=== PATIENT | female | born 1950 | race Caucasian/White ===

== ENCOUNTER 2018-08-04 16:11 | Observation (INO) | payer MEDICARE, MEDICAID ==
[~2018-08-04] VITALS: Ht 152.4 cm; Wt 70.8 kg
[~2018-08-04 16:11] MED LIST: LORTABELXR PO
[2018-08-04 16:12] VITALS: BP 109/51
[2018-08-04] MEDS ORDERED: EXELON1 EAC1 TOP (16:32)
[2018-08-04] MEDS ORDERED: LEXAPRO20 MG PO (16:33)
[2018-08-04] MEDS ORDERED: PLAVIX 75 MG TA75 M1 PO (16:33)
[2018-08-04] MEDS ORDERED: VITAMIN D250000 UNIT PO (16:34)
[2018-08-04] MEDS ORDERED: BISAC-EVAC10 MG RECTAL (16:36)
[2018-08-04] MEDS ORDERED: APAP650 PO (16:37)
[2018-08-04] MEDS ORDERED: SENNA8.6 MG PO (16:38)
[2018-08-04] MEDS ORDERED: LASIX 20 MG TAB20 MG PO (16:39)
[2018-08-04] MEDS ORDERED: LIPITOR 20 MG T20 M1 PO (16:39)
[2018-08-04] MEDS ORDERED: KLOR-CON 10 ER10 MEQ PO (16:39)
[2018-08-04] MEDS ORDERED: DEPAKOTE SPRIN125 MG PO (16:41)
[2018-08-04] MEDS ORDERED: NAMENDA 10 MG T10 MG PO (16:41)
[2018-08-04] MEDS ORDERED: RISPERDAL0.5 MG PO (16:41)
[2018-08-04 18:00] LABS: ABSOLUTE EOSINOPHILS 0.1 thou/uL (0.0-0.7); ABSOLUTE LYMPHOCYTES 2.8 thou/uL (0.8-5.3); ABSOLUTE MONOCYTES 0.7 thou/uL (0.0-1.2); ABSOLUTE NEUTROPHILS 1.9 thou/uL (1.6-8.1); BASOPHILS 0.6 %; EOSINOPHILS 1.8 %; HEMATOCRIT 34.4 % (37.0-47.0); HEMOGLOBIN 11.8 gm/dL (12.0-15.0); LYMPHOCYTES 51.2 %; MCH 31.4 pg (26.0-34.0); MCHC 34.2 g/dL (28.0-37.0); MCV 91.9 fL (80.0-100.0); MPV 8.9 fl. (7.2-11.1); NUCLEATED RBCS 0 /100WBC; PLATELET COUNT* 99 thou/uL (150-400); POLYS 34.4 %; RBC 3.75 mil/uL (4.20-5.00); RDW-CV 13.8 % (10.5-14.5); WBC 5.4 thou/uL (4.0-11.0)
[2018-08-04 18:14] LABS: CALCIUM 8.7 mg/dL (8.5-10.1); CREATININE 1.1 mg/dL (0.6-1.3); POTASSIUM 4.3 mmol/L (3.5-5.1)
[2018-08-04 18:18] LABS: ALBUMIN 2.8 g/dL (3.4-5.0); TOTAL BILIRUBIN 0.2 mg/dL (<0.1-1.0)
[2018-08-04 20:03] VITALS: BP 120/95
[2018-08-04 20:20] VITALS: BP 132/55
[2018-08-05] MEDS ORDERED: TRAMADOL 50 MG50 MG PO (09:41)
[2018-08-05 11:55] VITALS: BP 132/55
== END 2018-08-05 12:30 ==
LOC: M.ERS 16:11 → M.TBA-ER 18:42 → M.3W 19:59
PROVIDERS: Personal Emergency Response Attendant; ADMIT Internal Medicine
DX: S00.83XA Contusion of other part of head, initial encounter (principal); S70.02XA Contusion of left hip, initial encounter; F03.90 Unspecified dementia, unspecified severity, without behavioral disturbance, psychotic disturbance, mood disturbance, and anxiety; I11.0 Hypertensive heart disease with heart failure; I50.9 Heart failure, unspecified; W07.XXXA Fall from chair, initial encounter; Y93.89 Activity, other specified; Y92.89 Other specified places as the place of occurrence of the external cause; Y99.8 Other external cause status; Z85.43 Personal history of malignant neoplasm of ovary; Z98.890 Other specified postprocedural states; Z79.899 Other long term (current) drug therapy

== ENCOUNTER 2018-08-29 14:28 | Inpatient (IN) | payer MEDICARE, MEDICAID ==
[~2018-08-29] VITALS: Ht 162.6 cm; Wt 67.1 kg
--- NOTE | ~2018-08-29 | EEG ---
[address] [address] EEG STUDY REPORT Name: MAGGIEELVIS L Room: [address] [place] .#: [id number] Admission: 08/29/18 Attend Phys: Dionne Salas MD Discharge: Date of : 52 Report #: [id number] THIS REPORT FOR: //name// CC: Joshua Salas DATE OF SERVICE: 08/30/2018 This patient is being evaluated for seizure. EEG was done by placing the electrodes by standard 10-20 system of electrode placement. Both referential and sequential montages were used for recording. Background activity is extremely disorganized and poorly formed. It appeared to be about 4-5 Hz. The patient goes to sleep that is associated with bilaterally symmetrical sleep spindle and vertex sharp waves. Photic stimulation is unremarkable. IMPRESSION: This is a severely abnormal EEG, which is disorganized and poorly formed. That is a nonspecific abnormality, which can occur with severe dementia, encephalopathy, effect of psychotropic medication, etc. Clinical correlation is recommended. By: [id number] Jaeger MD /nt
--- NOTE | ~2018-08-29 | CON ---
[address] [address] CONSULTATION Name: ELVIS SERRANO Room: [address] [place] M.R.#: [id number] Admission: 08/29/18 Attend Phys: Dionne Salas MD Discharge: Date of : 52 Report #: [id number] THIS REPORT FOR: //name// CC: Joshua Salas DATE OF SERVICE: 08/30/2018 HISTORY OF PRESENT ILLNESS: This is a 68-year-old female patient who is unable to provide any history because the patient has advanced dementia. I talked to the patient's and he indicates that this patient has advanced dementia. The dementia is so advanced that she is not able to recognize even her . She becomes agitated. They put her on Depakote for agitation. She was admitted because she was found to have a possible seizure. It was apparently a tonic-clonic seizure and she had a postictal state after that. There is nothing associated, which has been found so far. REVIEW OF SYSTEMS: A 14-point review of system was carried out. The patient has advanced dementia. She has behavioral disturbances. She is a jail at least for 3 years. She had a seizure. It does not look like there was any thing, which triggered it in particular. She is one-to-one at the moment. This was her main contributing 14-point review of system, which was carried out, the best I could. PAST MEDICAL HISTORY: Positive for advanced dementia. FAMILY HISTORY: Negative for any early age stroke. SOCIAL HISTORY: She lives in a jail. PHYSICAL EXAMINATION: NEUROLOGIC: The patient's examination is pretty limited. She is alert and wakes up. She does not follow commands all the time. The says that is her baseline and she does not follow commands most of the time. It looks like she moves all 4 extremities. There is no meningeal sign. She cannot cooperate with the fundus examination. CARDIAC: Unremarkable. RESPIRATORY: No respiratory difficulty or rhonchi was noted. GENERAL: She is a moderately built individual. HEENT: Does not have any dysmorphic features of eyes, ears and face. IMPRESSION: 1. Advanced dementia. 2. Seizure. 3. Agitation. 4. Low platelet, which may be related to the [place] [address] CONSULTATION Name: ELVIS SERRANO Room: [address]#: [id number] Admission: 08/29/18 Attend Phys: Dionne Salas MD Discharge: Date of : 52 Report #: [id number] RECOMMENDATIONS: I think it will be desirable to add some other anticonvulsant to the patient's regimen. I will add some Keppra. Her Depakote may have to be tapered off as an outpatient. All of it was discussed with the patient's family in detail and we will await rest of the workup and see what she is able to cooperate. By: [id number] Jaeger MD /denzel
[~2018-08-29 14:28] MED LIST changes: +APAP650 PO; +BISAC-EVAC10 MG RECTAL; +DEPAKOTE SPRIN125 MG PO; +EXELON1 EAC1 TOP; +KLOR-CON 10 ER10 MEQ PO; +LASIX 20 MG TAB20 MG PO; +LEXAPRO20 MG PO; +LIPITOR 20 MG T20 M1 PO; +NAMENDA 10 MG T10 MG PO; +PLAVIX 75 MG TA75 M1 PO; +RISPERDAL0.5 MG PO; +SENNA8.6 MG PO; +TRAMADOL 50 MG50 MG PO; +VITAMIN D250000 UNIT PO
[2018-08-29 14:31] VITALS: BP 137/69
[2018-08-29] MEDS ORDERED: SEROQUEL 25 MG25 M1 PO (14:38)
[2018-08-29] MEDS ORDERED: MIRALAX17 GM PO (14:38)
[2018-08-29 15:01] LABS: ABSOLUTE EOSINOPHILS 0.1 thou/uL (0.0-0.7); ABSOLUTE LYMPHOCYTES 3.2 thou/uL (0.8-5.3); ABSOLUTE MONOCYTES 0.7 thou/uL (0.0-1.2); ABSOLUTE NEUTROPHILS 2.6 thou/uL (1.6-8.1); BASOPHILS 0.5 %; EOSINOPHILS 0.9 %; HEMATOCRIT 34.7 % (37.0-47.0); LYMPHOCYTES 48.6 %; MCH 31.8 pg (26.0-34.0); MCHC 34.5 g/dL (28.0-37.0); MCV 92.3 fL (80.0-100.0); MONOCYTES 10.8 %; MPV 8.2 fl. (7.2-11.1); NUCLEATED RBCS 0 /100WBC; PLATELET COUNT* 103 thou/uL (150-400); POLYS 39.2 %; RBC 3.76 mil/uL (4.20-5.00); RDW-CV 14.3 % (10.5-14.5); WBC 6.5 thou/uL (4.0-11.0)
--- NOTE | 2018-08-29 15:05 | NUR ---
PT REQUESTED TO SEE [facility]. 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 PT IS AWAKE ALERT AND ABLE TO COMMUNICATE IN FULL SENTENCES.
[2018-08-29 15:16] LABS: ALBUMIN 3.1 g/dL (3.4-5.0); CALCIUM 8.4 mg/dL (8.5-10.1); CREATININE 1.1 mg/dL (0.6-1.3); POTASSIUM 4.2 mmol/L (3.5-5.1); TOTAL BILIRUBIN 0.3 mg/dL (<0.1-1.0); TOTAL PROTEIN 6.2 g/dL (6.4-8.2)
--- NOTE | 2018-08-29 15:36 | NUR ---
JENNY NOTIFIED UPON PT RETURN FROM CT 1517. PT CONNECTED TO MONITOR.
[2018-08-29 17:55] LABS: URINE BILIRUBIN NEGATIVE (Negative); URINE BLOOD NEGATIVE (Negative); URINE CLARITY CLEAR; URINE COLOR YELLOW; URINE GLUCOSE-RANDOM NEGATIVE (Negative); URINE KETONES NEGATIVE (Negative); URINE LEUKOCYTES-REFLEX NEGATIVE (Negative); URINE NITRITE-REFLEX NEGATIVE (Negative); URINE PROTEIN NEGATIVE (Negative); URINE SPECIFIC GRAVITY 1.015 (1.005-1.030); URINE UROBILINOGEN 0.2 E.U./dl (0.2-1.0)
[2018-08-29 17:57] VITALS: BP 121/65
[2018-08-29 18:10] VITALS: BP 147/39
[2018-08-29 20:00] VITALS: BP 118/49
[2018-08-30 04:00] VITALS: BP 127/64
[2018-08-30 05:09] LABS: HEMATOCRIT 30.8 % (37.0-47.0); HEMOGLOBIN 10.9 gm/dL (12.0-15.0); MCH 32.2 pg (26.0-34.0); MCHC 35.2 g/dL (28.0-37.0); MCV 91.4 fL (80.0-100.0); MPV 7.9 fl. (7.2-11.1); RBC 3.37 mil/uL (4.20-5.00); WBC 5.2 thou/uL (4.0-11.0)
[2018-08-30 05:37] LABS: CALCIUM 8.5 mg/dL (8.5-10.1); CREATININE 1.1 mg/dL (0.6-1.3); MAGNESIUM 2.2 mg/dL (1.8-2.4); POTASSIUM 4.2 mmol/L (3.5-5.1)
--- NOTE | 2018-08-30 07:43 | NUR ---
ASSUMED PT CARE @ 1930. SITTER @ BEDSIDE. PT IS NONVERBAL OR MUMBLES. PT VOIDS PER COMMODE AND INCONTINENT @ TIMES. TOOK CRUSED PILLS WELL WITH PUDDING. PT MOANS WITH ACTIVITY/ PRN ULTRAM GIVEN X 2. PT UP WITH ASSIST X2. PT SEEMED TO REST WELL FOR PERIODS OF TIME AFTER PAIN MEDICINE. SB ON MONITOR. NO OTHER DISCOFORT OR PAIN NOTED. HOURLY ROUNDING AND SITTER AT BEDSIDE CONTINUOUSLY FOR SAFETY.
[2018-08-30 08:18] VITALS: BP 128/69
[2018-08-30 12:00] VITALS: BP 120/85
--- NOTE | 2018-08-30 12:33 | NUR ---
PT ALERT, UNABLE TO ASSESS ORIENTATION PT IS NON VERBAL. TELE TRACKING SB AND ALL VSS ON ROOM AIR. 1:1 SITTER AT BEDSIDE. ADEQUATE UO SO FAR THIS SHIFT. ANGELLA (DAUGHTER) EDUCATED ON SAFETY AND PLAN OF CARE. PLEASE SEE ASSESSMENT FOR ADDITIONAL INFORMATION. WILL CONTINUE TO MONITOR
--- NOTE | 2018-08-30 13:54 | NUR ---
Pt resides at [facility] on the memory care unit. CM spoke with Pt's via phone, plan is for Pt to return to [facility] at ut. Per . Pt is ambulatory, but has had increased falls. MARTA spoke with Silvana at [facility], they are able to accept Pt back at ut. Following.
[2018-08-30 20:00] VITALS: BP 155/59
--- NOTE | 2018-08-30 21:05 | NUR ---
RECEIVED TELE PSYCH FAX WITH PT TX RECOMMENDATIONS. NOTIFIED DR. LEBLANC OF CHANGES RECOMMENDED TO PT MEDICATIONS. DR. LEBLANC AGREED. NEW MEDS ORDERED.
[2018-08-31] VITALS: BP 117/54
[2018-08-31 04:00] VITALS: BP 126/74
--- NOTE | 2018-08-31 06:47 | NUR ---
ASSUMED PT CARE @ 1930. PT SEDEATED FROM "ATIVAN GIVEN FOR MRI ON ." RESPONDS DURING TURNS/INCONTINENCE CHANGES. NONVERBAL RESPONSES PER PTS BASELINE THIS HOSPITAL STAY. NO APPARENT DISTRESS NOTED OR OBSERVED. SITTER AT BEDSIDE CONTINUOUSLY. HOURLY ROUNDING FOR SAFERTY. TRACING SINUS ZACHARY ON MONITOR 40s-50s THROUGHOUT SHIFT. TRACE EDEMA ON ARMS BILAT. NO EDEMA OBSERVED ON LOWER EXTREMITIES. CALL LIGHT AND SITTER AT BEDSIDE.
[2018-08-31 08:05] VITALS: BP 146/74
[2018-08-31 11:56] VITALS: BP 145/75
[2018-08-31] MEDS ORDERED: ATIVAN0.5 MG PO ×2 (12:19→17:28)
[2018-08-31 15:49] VITALS: BP 120/90
--- NOTE | 2018-08-31 15:54 | NUR ---
Pt scheduled to dc back to [facility] today, waiting for neuro to come and sign off. CM faxed dc orders to [phone], nurse report number is [phone]. 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 Pt will need ambulance transport, CM completed ambulance transfer form, form will need to be faxed to [phone], then call [phone] to arrange ambulance. If Pt does not dc, please update [facility] at [phone]. Family in room and aware of potential dc. Chart copied.
[2018-08-31 17:19] VITALS: BP 120/90
[2018-08-31] MEDS ORDERED: KEPPRA 500 MG500 M1 PO (17:27)
[2018-08-31] MEDS ORDERED: PEPCID20 MG PO (17:44)
[2018-08-31] MEDS ORDERED: TYLENOL EXTRA500 MG PO (17:46)
[2018-08-31] MEDS ORDERED: ZYPREXA10 MG IM (17:47)
--- NOTE | 2018-08-31 17:56 | NUR ---
PT DC TO [facility] VIA AMBULANCE. FAMILY REQUESTED PAIN MED FOR PT. TP DID NOT APPEAR IN PAIN BUT KEPT SAYING YES WHEN ASKED IF IN PAIN. UNABLE TO REPORT WHERE. ATTEMPTED TO CALL REPORT TO [facility] BUT PHONE WENT UNANSWERED AFTER BEING TRANSFERRED 3 TIMES TO DIFFERENT PEOPLE. IV REMOVED INTACT BEFORE DC.
== END 2018-08-31 17:57 | DRG 101 ==
LOC: M.ERS 14:28 → M.2W 16:42 → M.TBA-ER 16:42 → M.2W 18:25
PROVIDERS: Emergency Medicine; ADMIT Internal Medicine
DX: R56.9 Unspecified convulsions (principal); I50.32 Chronic diastolic (congestive) heart failure; I11.0 Hypertensive heart disease with heart failure; F03.90 Unspecified dementia, unspecified severity, without behavioral disturbance, psychotic disturbance, mood disturbance, and anxiety; R45.1 Restlessness and agitation; F41.9 Anxiety disorder, unspecified; R41.0 Disorientation, unspecified; Z88.1 Allergy status to other antibiotic agents; Z79.899 Other long term (current) drug therapy